=== PATIENT | male | born 2000 | race Caucasian/White ===

== ENCOUNTER 2019-01-09 09:35 | Emergency (ER) | payer BC, OTHER ==
[~2019-01-09] VITALS: Ht 175.3 cm; Wt 77.1 kg
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
[2019-01-09] MEDS ORDERED: HUMALOG PUMP (11:08)
[2019-01-09 11:22] LABS: BILIRUBIN,URINE NEGATIVE (NEGATIVE); CLARITY,URINE CLEAR; COLOR,URINE YELLOW; GLUCOSE, URINE (UA) 3+ (NEGATIVE); KETONES,URINE 3+ (NEGATIVE); LEUKOCYTE ESTERASE ,URINE NEGATIVE (NEGATIVE); NITRITE,URINE NEGATIVE (NEGATIVE); PH,URINE 6 (5-9); PROTEIN,URINE NEGATIVE (NEGATIVE); UROBILINOGEN,URINE NORMAL (NORMAL)
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
[2019-01-09 11:27] LABS: BASOPHILS % (AUTO) 1 % (0-10); EOSINOPHILS % (AUTO) 1 % (0-10); HEMATOCRIT 45 % (40-54); HEMOGLOBIN 15.6 G/DL (13.3-17.7); LYMPHOCYTES # (AUTO) 1.5 X 10^3 (1.0-4.0); LYMPHOCYTES % (AUTO) 25 % (12-44); MEAN CORPUSCULAR HEMOGLOBIN 29 PG (25-34); MEAN CORPUSCULAR HGB CONC 35 G/DL (32-36); MEAN CORPUSCULAR VOLUME 84 FL (80-99); MEAN PLATELET VOLUME 10.1 FL (7.4-10.4); MONOCYTES # (AUTO) 0.5 X 10^3 (0.0-1.0); MONOCYTES % (AUTO) 8 % (0-12); NEUTROPHILS # (AUTO) 4.1 X 10^3 (1.8-7.8); NEUTROPHILS % (AUTO) 67 % (42-75); PLATELET COUNT 316 10^3/uL (130-400); RED CELL DISTRIBUTION WIDTH 12.8 % (10.0-14.5); WHITE BLOOD COUNT 6.1 10^3/uL (4.3-11.0)
[2019-01-09 11:37] LABS: BACTERIA,URINE NEGATIVE /HPF
[2019-01-09 11:38] LABS: CALCIUM OXALATE CRYSTALS,UR MODERATE /LPF
[2019-01-09 11:47] LABS: ALANINE AMINOTRANSFERASE 32 U/L (0-55); ALBUMIN 4.6 GM/DL (3.2-4.5); ALKALINE PHOSPHATASE 78 U/L (40-136); AMYLASE 115 U/L (25-125); BILIRUBIN,TOTAL 0.9 MG/DL (0.1-1.0); BUN/CREATININE RATIO 9; CALCIUM 9.5 MG/DL (8.5-10.1); CARBON DIOXIDE 24 MMOL/L (21-32); CHLORIDE 104 MMOL/L (98-107); CREATININE SERUM 0.99 MG/DL (0.60-1.30); GFR ESTIMATED > 60; GLUCOSE 186 MG/DL (70-105); LIPASE 46 U/L (8-78); SODIUM 140 MMOL/L (135-145); TOTAL PROTEIN 7.6 GM/DL (6.4-8.2)
[2019-01-09 12:20] VITALS: BP 142/76
--- OUTSIDE RECORDS SUMMARY | 2019-01-09 12:45 | XMS REPORT | Continuity of Care Document ---
Author Author Organization Address [address] [place] [address] Phone Unavailable Care Team Providers Care Hepatologist Name Role Phone Physician, No Family PCP Unavailable Insurance Providers Payer Name Policy Number Subscriber Name Relationship Other Automobile Insurance [id number] Laya Storm Step Mother [facility] [id number] Brina Storm Mother Advance Directives Directive Response Recorded Date/Time Do You Have A Living Will? No 01/14/17 1:38pm Do You Have a DPOA? No 01/14/17 1:38pm Problems Active Problems Medical Problem Onset Date Status Please apply shara wrap Unknown Acute Crush injury of foot Unknown Acute Crush injury of right foot Unknown Acute Medications Current Home Medications Medication Dose Units Route Directions Days/Qty Instructions Start Date Insulin Human Lispro (Humalog Cartridge) 100 Unit/Ml 1 Unit Sub-Q Daily 15 08/22/16 Hydrocodone Bit/Acetaminophen 5 Mg-325 Mg 1-2 Tab Oral Every 4-6 Hours As Needed as needed 40 01/14/17 Social History Social History Problem Response Recorded Date/Time History of Street Drugs? Y MARIJUANA HISTORY. QUIT 2 YEARS AGO. 01/14/2017 1 :35pm Hx Alcohol Use Y "ONE CASE A WEEK" 01/14/2017 1:35pm Query Response Start Date Stop Date Smoking status: Current everyday smoker Hospital Discharge Instructions No hospital discharge instructions. Plan of Care Discharge Date 01/14/17 4:20pm Disposition HOME, ROUTINE DIS/ASST LIVING Condition at Discharge Stable & Improved Prescriptions See Medication Section Functional Status No functional status results. Allergies, Adverse Reactions, Alerts Allergen Type Severity Reaction Status Last Updated No Allergy Information Available Allergy Unknown Active 08/22/16 Immunizations No immunization records. Vital Signs Acute Vital Signs Vital Response Date/Time Height (Feet) 5 ft 01/14/2017 1:35pm Height (Inches) 10 inches 01/14/2017 1:35pm Temperature (Fahrenheit) 97.7 degrees F (97.6 - 99.5) 01/14/2017 1:35pm Pulse Pulse Rate 89 bpm (60 - 100) 01/14/2017 4:20pm Respiratory Rate 16 bpm (10 - 24) 01/14/2017 4:20pm Oxygen Saturation O2 Sat by Pulse Oximetry 97 % (93 - 100) 01/14/2017 4:20pm Blood Pressure 121/71 mm Hg 01/14/2017 4:20pm Blood Pressure Mean 102 mm Hg 01/14/2017 1:35pm Height 5 ft 10 in Weight 165 lb Body Mass Index 23.7 kg/m^2 Ambulatory Vital Signs Vital Response Date/Time Height 5 ft 08/22/2016 9:39am Weight 162 lbs 08/22/2016 9:39am Blood Pressure, Sitting, Left Arm 122/80 mm Hg 08/22/2016 9:39am Pulse Rate 91 bpm 08/22/2016 9:39am Body Surface Area 1.79 m2 08/22/2016 9:39am Body Mass Index 31.6 kg/m2 08/22/2016 9:39am Pulse Oximetry Pulse Oximetry 08/22/2016 9:39am Results Ambulatory Laboratory Results Test Name Result Units Flags Reference Result Date/Time Comments Bedside Hemoglobin A1c 9.6 % H 4.0-6.0 08/22/2016 9:40am Procedures Procedure Status Date Provider(s) X-ray of right foot, three or more views Active 01/14/17 Angelo Lynn MD Encounters Encounter Location Arrival/Admit Date Discharge/Depart Date Attending Provider Departed Emergency Room 01/14/17 1:38pm 01/14/17 4:20pm Angelo Lynn MD Recent Diagnosis Please apply shara wrap Crush injury of foot Crush injury of right foot
--- OUTSIDE RECORDS SUMMARY | 2019-01-09 12:45 | XMS REPORT ---
Author Author GREG WHITAKER [facility] Address [address] [place] [address] Care Team Providers Care Diesel Engine I Pipe Fitter Name Role Phone GREG WHITAKER Unavailable PROBLEMS Unknown Problems ALLERGIES No Known Allergies ENCOUNTERS Encounter Location Date Diagnosis [facility] [address] [place] [phone] Jun, Muscle spasm M62.838 and Right shoulder pain, unspecified chronicity M25.511 [facility] [address] [place], [place] [id number] [place] [address] May, Right hand pain M79.641 and Contusion of right hand, initial encounter S60.221A [facility] [address] [place] [phone] Jan, Bronchitis J40 [facility] [address] [place] [phone] Aug, Viral gastroenteritis A08.4 IMMUNIZATIONS No Known Immunizations SOCIAL HISTORY Never Assessed REASON FOR VISIT neck and arm pain-The patient was at work and started having shooting pains across his chest and back which is made worse by raising his arms up or moving his neck in certain ways.--HOUSTON Diaz PLAN OF CARE Activity Details Follow Up prn Reason: VITAL SIGNS Height 67 in 2018-07-01 Weight 161 lbs 2018-07-01 Temperature 98.3 degrees Fahrenheit 2018-07-01 Heart Rate 80 bpm 2018-07-01 Respiratory Rate 18 2018-07-01 BMI 25.21 kg/m2 2018-07-01 Blood pressure systolic 136 mmHg 2018-07-01 Blood pressure diastolic 64 mmHg 2018-07-01 MEDICATIONS Medication Instructions Dosage Frequency Start Date End Date Duration Status Humalog 100 UNIT/ML Active Cyclobenzaprine HCl 10 mg Orally at bedtime 1 tablet as needed Jun, Active Ibuprofen 800 MG Orally Three times a day 1 tablet with food or milk as needed 8h Jun, Active RESULTS No Results PROCEDURES No Known procedures INSTRUCTIONS MEDICATIONS ADMINISTERED No Known Medications MEDICAL (GENERAL) HISTORY Type Description Date Medical History Type 1 IDDM Surgical History appendectomy Jan 2017 Hospitalization History DKA 2014
--- OUTSIDE RECORDS SUMMARY | 2019-01-09 12:45 | XMS REPORT ---
Author Author DHIRAJ ALTAMIRANO Organization [facility] Address [address] [place] [address] Care Team Providers Care Cna Pct Name Role Phone DHIRAJ ALTAMIRANO Unavailable PROBLEMS Type Condition ICD9-CM Code [id number] Code Onset Dates Condition Status SNOMED Code Problem Diabetes type 1, controlled E10.9 Active [id number] ALLERGIES No Known Allergies ENCOUNTERS Encounter Location Date Diagnosis [facility] [id number] [place] [phone] Oct, Diarrhea R19.7 [facility] [address] [place] [phone] Oct, Diarrhea R19.7 and Nausea R11.0 [facility] [address] [place] [address] Jun, Muscle spasm M62.838 and Right shoulder pain, unspecified chronicity M25.511 [facility] [address] [place] [phone] May, Right hand pain M79.641 and Contusion of right hand, initial encounter S60.221A [facility] [address] [phone] Jan, Bronchitis J40 [facility] [address] [place] [phone] Aug, Viral gastroenteritis A08.4 IMMUNIZATIONS No Known Immunizations SOCIAL HISTORY Never Assessed REASON FOR VISIT stomach ache/nausea x couple days JStrasserRN PLAN OF CARE Activity Details Follow Up prn Reason: VITAL SIGNS Height 67 in 2018-10-20 Weight 169.6 lbs 2018-10-20 Temperature 97.8 degrees Fahrenheit 2018-10-20 Heart Rate 86 bpm 2018-10-20 Respiratory Rate 20 2018-10-20 BMI 26.56 kg/m2 2018-10-20 Blood pressure systolic 126 mmHg 2018-10-20 Blood pressure diastolic 80 mmHg 2018-10-20 MEDICATIONS Medication Instructions Dosage Frequency Start Date End Date Duration Status Humalog 100 UNIT/ML Active RESULTS No Results PROCEDURES No Known procedures INSTRUCTIONS MEDICATIONS ADMINISTERED No Known Medications MEDICAL (GENERAL) HISTORY Type Description Date Medical History Type 1 IDDM Surgical History appendectomy Jan 2017 Hospitalization History DKA 2014
--- OUTSIDE RECORDS SUMMARY | 2019-01-09 12:45 | XMS REPORT ---
Author Author DHIRAJ ALTAMIRANO Organization [facility] Address [address] [place] [address] Care Team Providers Care Paper Cup Machine Operator Name Role Phone DHIRAJ ALTAMIRANO Unavailable PROBLEMS Type Condition ICD9-CM Code [id number] Code Onset Dates Condition Status SNOMED Code Problem Diabetes type 1, controlled E10.9 Active [id number] ALLERGIES No Information ENCOUNTERS Encounter Location Date Diagnosis [facility] [id number] [place] [phone] Oct, Diarrhea R19.7 [facility] [address] [place] [phone] Oct, Diarrhea R19.7 and Nausea R11.0 [facility] [address] [place] [phone] Jun, Muscle spasm M62.838 and Right shoulder pain, unspecified chronicity M25.511 [facility] [address] [place] [phone] May, Right hand pain M79.641 and Contusion of right hand, initial encounter S60.221A [facility] [address] [phone] Jan, Bronchitis J40 [facility] [address] [place] [phone] Aug, Viral gastroenteritis A08.4 IMMUNIZATIONS No Known Immunizations SOCIAL HISTORY Never Assessed REASON FOR VISIT Lab (walk-in) PLAN OF CARE Activity Details Pending Test STOOL (O & P) Pending Test STOOL (WBC) Pending Test CULTURE, STOOL Pending Test STOOL (C-DIFF) VITAL SIGNS MEDICATIONS Unknown Medications RESULTS No Results PROCEDURES Procedure Date Ordered Result Body Site OVA AND PARASITES SMEARS Oct 21, 2018 SMEAR, COMPLEX STAIN Oct 21, 2018 FECES CULTURE, BACTERIA Oct 21, 2018 LEUKOCYTE COUNT, FECAL Oct 21, 2018 C DIFF AMPLIFIED PROBE Oct 21, 2018 INSTRUCTIONS MEDICATIONS ADMINISTERED No Known Medications MEDICAL (GENERAL) HISTORY Type Description Date Medical History Type 1 IDDM Surgical History appendectomy Jan 2017 Hospitalization History DKA 2014
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
--- OUTSIDE RECORDS SUMMARY | 2019-01-09 12:45 | XMS REPORT ---
Author Author PRICE PHILLIPS [facility] Address [address] [place] [address] Care Team Providers Care Linoleum Tile Floor Layer Name Role Phone PRICE PHILLIPS Unavailable PROBLEMS Unknown Problems ALLERGIES No Known Allergies ENCOUNTERS Encounter Location Date Diagnosis [facility] [address] [facility] [id number] [address] Jan, Bronchitis J40 [facility] [address] [facility] [id number] [address] Aug, Viral gastroenteritis A08.4 IMMUNIZATIONS No Known Immunizations SOCIAL HISTORY Never Assessed REASON FOR VISIT Nausea/stomach ache JStrasserRN PLAN OF CARE Activity Details Follow Up prn Reason: VITAL SIGNS Weight 173.8 lbs 2017-08-10 Temperature 98.3 degrees Fahrenheit 2017-08-10 Heart Rate 84 bpm 2017-08-10 Respiratory Rate 20 2017-08-10 Blood pressure systolic 142 mmHg 2017-08-10 Blood pressure diastolic 82 mmHg 2017-08-10 MEDICATIONS Medication Instructions Dosage Frequency Start Date End Date Duration Status Humalog 100 UNIT/ML Active Adderall 30 MG Orally Once a day 1 tablet in the morning 24h Active RESULTS No Results PROCEDURES No Known procedures INSTRUCTIONS MEDICATIONS ADMINISTERED No Known Medications MEDICAL (GENERAL) HISTORY Type Description Date Surgical History appendectomy Jan 2017 Hospitalization History DKA 2014
--- OUTSIDE RECORDS SUMMARY | 2019-01-09 12:45 | XMS REPORT ---
Author Author LEVON HORTON Organization [facility] Address [address] [place] [address] Care Team Providers Care Business Systems Architect Name Role Phone LEVON HORTON Unavailable PROBLEMS Unknown Problems ALLERGIES No Known Allergies ENCOUNTERS Encounter Location Date Diagnosis [facility] [address] [place] [id number] [place] [phone] May, Right hand pain M79.641 and Contusion of right hand, initial encounter S60.221A [facility] [address] [place] [address] [address] Jan, Bronchitis J40 [facility] [address] [place] [phone] Aug, Viral gastroenteritis A08.4 IMMUNIZATIONS No Known Immunizations SOCIAL HISTORY Never Assessed REASON FOR VISIT cough/congestion for 2-3 days. [email or web address] PLAN OF CARE VITAL SIGNS Height 67 in 2018-02-01 Weight 153.4 lbs 2018-02-01 Temperature 98.9 degrees Fahrenheit 2018-02-01 Heart Rate 84 bpm 2018-02-01 Respiratory Rate 20 2018-02-01 BMI 24.02 kg/m2 2018-02-01 Blood pressure systolic 146 mmHg 2018-02-01 Blood pressure diastolic 84 mmHg 2018-02-01 MEDICATIONS Medication Instructions Dosage Frequency Start Date End Date Duration Status Adderall 30 MG Orally Once a day 1 tablet in the morning 24h Active Humalog 100 UNIT/ML Active Doxycycline Hyclate 100 mg Orally every 12 hrs 1 capsule 12h Jan, Jan, 10 days Active RESULTS No Results PROCEDURES No Known procedures INSTRUCTIONS MEDICATIONS ADMINISTERED No Known Medications MEDICAL (GENERAL) HISTORY Type Description Date Surgical History appendectomy Jan 2017 Hospitalization History DKA 2014
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
--- OUTSIDE RECORDS SUMMARY | 2019-01-09 12:46 | XMS REPORT | Continuity of Care Document ---
Author Author [facility] Organization [facility] Address [address] [place] [address] Phone Unavailable Care Team Providers Care Cosmetic Manager Name Role Phone Physician, No Family PCP Unavailable Insurance Providers Payer Name Policy Number Subscriber Name Relationship Other Automobile Insurance Laya Storm Mother [facility] [id number] Brina Storm Mother Advance Directives Directive Response Recorded Date/Time Do You Have A Living Will? No 01/29/17 5:07pm Do You Have a DPOA? No 01/29/17 5:07pm Problems Active Problems Medical Problem Onset Date Status Please apply shara wrap Unknown Acute Crush injury of foot Unknown Acute Crush injury of right foot Unknown Acute Acute appendicitis Unknown Acute Medications Current Home Medications Medication Dose Units Route Directions Days/Qty Instructions Start Date Insulin Human Lispro (Humalog Cartridge) 100 Unit/Ml 1 Unit Sub-Q Daily 15 08/22/16 Hydrocodone Bit/Acetaminophen 5 Mg-325 Mg 1-2 Tab Oral Every 4-6 Hours As Needed as needed 40 01/14/17 Past Home Medications Medication Directions Ordered Status Ondansetron 8 Mg Tab.rapdis, 8 Mg Oral One Time Only 01/29/17 Discontinued Social History Social History Problem Response Recorded Date/Time History of Street Drugs? Y MARIJUANA HISTORY. QUIT 2 YEARS AGO. 01/14/2017 1 :35pm Hx Alcohol Use Y "ONE CASE A WEEK" 01/14/2017 1:35pm Query Response Start Date Stop Date Smoking status: Former smoker Hospital Discharge Instructions Current inpatient/outpatient. Discharge instructions are currently unavailable. Plan of Care Prescriptions Functional Status No functional status results. Allergies, Adverse Reactions, Alerts No known allergies. Immunizations No immunization records. Vital Signs Acute Vital Signs Vital Response Date/Time Height (Feet) 5 ft 01/14/2017 1:35pm Height (Inches) 10 inches 01/14/2017 1:35pm Temperature (Fahrenheit) 99.1 degrees F (97.6 - 99.5) 01/30/2017 6:30am Pulse Pulse Rate 107 bpm (60 - 100) 01/29/2017 9:45pm Pulse Rate (Adolescent 12-19yrs) 88 bpm (56 - 106) 01/30/2017 6:30am Respiratory Rate 23 bpm (10 - 24) 01/29/2017 9:45pm Respiratory Rate (Adolescent 12-19yrs) 18 bpm (15 - 20) 01/30/2017 6:30am Oxygen Saturation O2 Sat by Pulse Oximetry 100 % (93 - 100) 01/30/2017 6:30am Blood Pressure 159/87 mm Hg 01/29/2017 9:45pm Blood Pressure Mean 89 mm Hg 01/30/2017 6:30am Blood Pressure Systolic (Adolescent 12-19yrs) 138 mm Hg (92 - 127) 2016 6:30am Blood Pressure Diastolic (Adolescent 12-19yrs) 65 mm Hg (53 - 80) 2016 6:30am Height 5 ft 10 in Weight 161 lb Body Mass Index 23.0 kg/m^2 Ambulatory Vital Signs Vital Response Date/Time [...] 01/29/2017 1:09pm Monocytes % 13.8 % 01/29/2017 12:30pm 01/29/2017 1:09pm Eosinophils % 0.1 % 01/29/2017 12:30pm [...] H <0.8 01/29/2017 12:30pm 01/29/2017 1: 17pm Bedside Glucose 85 mg/dL 65-99 01/30/2017 5:15am 01/30/2017 5:32am [id number] TESTING PERFORMED BY PERSONNEL OF: [address] [place] [address] Ambulatory Laboratory Results Test Name Result Units Flags Reference Result Date/Time Comments Bedside Blood Urea Nitrogen 11 mg/dL 7-20 01/29/2017 1:10pm Bedside Chloride 95 mmol/L L 98-110 01/29/2017 1:10pm Bedside Total CO2 28 mmol/L 19-30 01/29/2017 1:10pm Bedside Creatinine 1.0 mg/dL 0.60-1.26 01/29/2017 1:10pm Bedside Glucose 155 mg/dL H 65-99 01/29/2017 1:10pm Bedside Hematocrit 51 % H 36-49 01/29/2017 1:10pm Bedside Hemoglobin A1c 9.6 % H 4.0-6.0 08/22/2016 9:40am Bedside Ionized Calcium (Jhonathan) 1.17 mmol/L L 1.20-1.40 01/29/2017 1:10pm Bedside Potassium 3.9 mmol/L 3.5-5.0 01/29/2017 1:10pm Urinalysis Dipstick [id number] 01/29/2017 1:11pm Bedside Sodium 138 mmol/L 135-146 [...] mg/dL (N=NEG) 01/29/2017 1:11pm Bedside Urine Specific [place] (LAB 1.020(N=1.000-1.025) 01/29/2017 1:11pm Bedside Urine Urobilinogen (LAB) 4 mg/dL(N=NORMAL) 01/29/2017 1: 11pm Procedures Procedure Status Date Provider(s) X-RAY EXAM OF FOOT Completed 01/14/17 THER/PROPH/DIAG INJ SC/IM Completed 01/14/17 EMERGENCY DEPT VISIT Completed 01/14/17 Ketorolac tromethamine inj Completed 01/14/17 Laparoscopic appendectomy Completed 01/29/17 Nitish Ham M.D. X-ray of right foot, three or more views Active 01/14/17 Angelo Lynn MD Computed tomography of abdomen and pelvis with contrast Active 01/29/17 Sandra Crump PA-C Encounters Encounter Location Arrival/Admit Date Discharge/Depart Date Attending Provider Registered Surgical Day Care [facility] 01/29/17 5:07pm Nitish Ham M.D. Departed Clinic [facility] 01/29/17 1:42pm 01/29/17 11:59pm Sandra Crump PA-C Registered Provider Originated [facility] 01/29/17 1:00pm Sandra Crump PA-C Office Visit [facility] 01/29/17 12:05pm Sandra Crump PA-C Registered Practice [facility] 01/29/17 12:05pm Sandra Crump Departed Emergency Room [facility] 01/14/17 1:38pm 01/14/17 4:20pm Angelo Lynn MD Recent Diagnosis Acute appendicitis
== END 2019-01-09 12:20 | disposition home or self-care (01) ==
LOC: ER 09:40
DX: E10.9 Type 1 diabetes mellitus without complications (principal); Z87.891 Personal history of nicotine dependence; Z90.49 Acquired absence of other specified parts of digestive tract
CPT/HCPCS: 36415; 80053; 81000; 82150; 82962; 83690; 85025

== ENCOUNTER 2019-01-13 17:59 | Emergency (ER) | payer BC ==
[~2019-01-13] VITALS: Ht 175.3 cm; Wt 77.1 kg
[~2019-01-13 17:59] MED LIST: HUMALOG PUMP
[2019-01-13] MEDS ORDERED: fentaNYL INJECTION 100 MCG/2 ML AMP IVP STA (18:04)
[2019-01-13] MEDS ORDERED: TETANUS,DIPTH,PERTUSS P/F (BOOSTRIX) 0.5 ML VIAL IM STA (18:04)
[2019-01-13] MEDS ORDERED: D5 NS 1000 ML IV SOLUTION 1,000 ML IV ONE (18:04)
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
[2019-01-13] MEDS ORDERED: morphine INJ 10 MG/ML 1ML (SYR OR VIAL) ONE (18:22)
[2019-01-13 18:24] LABS: HEMOGLOBIN 15.3 G/DL (13.3-17.7); MEAN PLATELET VOLUME 10.4 FL (7.4-10.4); RED CELL DISTRIBUTION WIDTH 12.7 % (10.0-14.5); WHITE BLOOD COUNT 16.5 10^3/uL (4.3-11.0)
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
[2019-01-13] MEDS ORDERED: morphine INJ 10 MG/ML 1ML (SYR OR VIAL) IVP STA ×3 (18:25→18:50)
[2019-01-13] MEDS ORDERED: RECEIVED CONTRAST (Hold Metformin) IV SCH (18:30)
[2019-01-13] MEDS ORDERED: NS 100 ML (IVPB) BAG IV ONE ×2 (18:30)
[2019-01-13] MEDS ORDERED: IOHEXOL 350 MG/ML 100 ML (OMNIPAQUE 350) VIAL IV ONE ×2 (18:30)
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
[2019-01-13 18:42] LABS: ALANINE AMINOTRANSFERASE 138 U/L (0-55); ALBUMIN 4.5 GM/DL (3.2-4.5); ALKALINE PHOSPHATASE 81 U/L (40-136); BILIRUBIN,DIRECT 0.3 MG/DL (0.0-0.3); BILIRUBIN,INDIRECT 0.2 MG/DL; BILIRUBIN,TOTAL 0.5 MG/DL (0.1-1.0); BUN/CREATININE RATIO 15; CALCIUM 9.4 MG/DL (8.5-10.1); CARBON DIOXIDE 25 MMOL/L (21-32); CHLORIDE 102 MMOL/L (98-107); CREATINE KINASE 987 U/L (30-200); CREATININE SERUM 1.09 MG/DL (0.60-1.30); FIBRIN DEGRADATION PRODUCTS 11.87 UG/ML (0.00-0.49); GFR ESTIMATED > 60; GLUCOSE 107 MG/DL (70-105); INR 1.3 (0.8-1.4); MAGNESIUM 1.8 MG/DL (1.8-2.4); PHOSPHORUS 3.8 MG/DL (2.3-4.7); POTASSIUM 3.2 MMOL/L (3.6-5.0); PROTHROMBIN TIME PATIENT 16.4 SEC (12.2-14.7); SODIUM 140 MMOL/L (135-145); TOTAL PROTEIN 7.3 GM/DL (6.4-8.2)
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
[2019-01-13] MEDS ORDERED: HYDROmorphone 2 MG/ML VIAL (DILAUDID) ONE (19:05)
[2019-01-13] MEDS ORDERED: HYDROmorphone 2 MG/ML VIAL (DILAUDID) IV ONE (19:15)
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
--- NOTE | 2019-01-13 19:55 | NUR ---
nolan here for pt at this time
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
[2019-01-13 20:06] VITALS: BP 159/85
== END 2019-01-13 20:06 | disposition short-term general hospital (02) ==
LOC: EDUNIT# 17:59 → ER 18:02
DX: S32.491A Other specified fracture of right acetabulum, initial encounter for closed fracture (principal); S62.311A Displaced fracture of base of second metacarpal bone, left hand, initial encounter for closed fracture; S62.313A Displaced fracture of base of third metacarpal bone, left hand, initial encounter for closed fracture; S73.014A Posterior dislocation of right hip, initial encounter; S13.4XXA Sprain of ligaments of cervical spine, initial encounter; S81.011A Laceration without foreign body, right knee, initial encounter; M54.2 Cervicalgia; M25.561 Pain in right knee; E10.649 Type 1 diabetes mellitus with hypoglycemia without coma; R55 Syncope and collapse; R07.81 Pleurodynia; F12.10 Cannabis abuse, uncomplicated; R40.2142 Coma scale, eyes open, spontaneous, at arrival to emergency department; R40.2252 Coma scale, best verbal response, oriented, at arrival to emergency department; R40.2362 Coma scale, best motor response, obeys commands, at arrival to emergency department; Z23 Encounter for immunization; Z87.891 Personal history of nicotine dependence; Z90.49 Acquired absence of other specified parts of digestive tract; V49.40XA Driver injured in collision with unspecified motor vehicles in traffic accident, initial encounter
CPT/HCPCS: 36415; 70450; 71045; 71260; 72125; 72128; 72131; 73130; 73552; 73560; 73562; 74177; 80048; 80076; 80320; 82550; 82962; 83605; 83735; 84100; 84484; 85027; 85379; 85384; 85610; 85730; 86850; 86900; 86901; 86920; 93041; 99291; 99292

== ENCOUNTER 2019-04-07 14:30 | Outpatient (RCR) | payer BC | END 2019-04-14 17:00 | disposition home or self-care (01) | PROVIDERS: ATTEND Orthopaedic Surgery | DX: Z47.89 Encounter for other orthopedic aftercare (principal) ==

== ENCOUNTER 2019-04-09 15:30 | Outpatient (RCR) | payer BC, OTHER | END 2019-04-09 16:01 | disposition home or self-care (01) | PROVIDERS: ATTEND Internal Medicine | DX: Z47.89 Encounter for other orthopedic aftercare (principal) ==